=== PATIENT | female | born 1960 | race American Indian/Alaskan Native ===

== ENCOUNTER 2018-12-18 06:39 | Day surgery (SDC) | payer OTHER ==
[2018-12-18] MEDS ORDERED: SODIUM CHLORIDE 0.9% 1000 ML 1,000 ML IV SCH (07:00)
--- NOTE | 2018-12-18 08:41 | Anesthesia Day of Surgery ---
Anesthesia Day of Surgery - Day of Surgery Patient Examined: Yes Patient H&P Reviewed: Yes Patient is NPO: Yes
--- NOTE | 2018-12-18 08:42 | Anesthesia Consultation ---
Anesthesia Consult and Med Hx Date of service: 12/18/18 - Airway Anesthetic Teeth Evaluation: Good ROM Head & Neck: Adequate Mental/Hyoid Distance: Adequate Mallampati Class: Class II Intubation Access Assessment: Good - Pre-Operative Health Status ASA Pre-Surgery Classification: ASA3 Proposed Anesthetic Plan: MAC - Pulmonary Hx Smoking: Yes (CIGARETTES 1/2 PPD X 30 YRS, QUIT 3-15) Hx Asthma: No COPD: No Hx Pneumonia: Yes Hx Sleep Apnea: Yes - Cardiovascular System Hx Hypertension: Yes (FOR 5 YRS) - Central Nervous System Hx Psychiatric Problems: No - Gastrointestinal Hx Gastroesophageal Reflux Disease: Yes - Endocrine Hx Renal Disease: Yes (CKD) Hx End Stage Renal Disease: No Hx Liver Disease: Yes (Increased LFTs) Hx Non-Insulin Dependent Diabetes: Yes (FBS 172) - Other Systems Hx Cancer: No Hx Obesity: Yes
[2018-12-18] MEDS ORDERED: fentaNYL 100 MCG/2 ML INJ ONE (08:46)
[2018-12-18] MEDS ORDERED: PROPOFOL 200 MG/20 ML VIAL IV ONE ×2 (08:46)
--- NOTE | 2018-12-18 09:24 | Short Stay Summary ---
Short Stay Documentation Date of service: 12/18/18 Narrative H&P: The patient presents for diagnostic EGD for upper abdominal pain and for surveillance colonoscopy for hx of polyps. Last colonoscopy 5 years ago. - History Past Medical History: diabetes, hypertension, other (obesity, CKD) Past Surgical History: , Other (breast surgery) Social history: smoking, no alcohol abuse, no prescription drug abuse - Allergies and Medications Current Medications: Allergies No Known Allergies Allergy (Verified 04/13/14 23:31) Home Medications Medication Instructions Recorded Confirmed Last Taken Type metFORMIN [Glucophage] 500 mg PO BID 04/13/14 12/18/18 12/17/18 20:00 History Albuterol Sulfate [Proventil Hfa] 2 puff INHALATION PRN 12/18/18 12/18/18 12/17/18 09:00 History Triamter/Hctz 37.5-25 mg 1 tab PO DAILY 12/18/18 12/18/18 12/17/18 08:00 History amLODIPine [Norvasc] 5 mg PO DAILY 12/18/18 12/18/18 12/17/18 08:00 History Active Medications Sodium Chloride (Nacl 0.9% 1000 Ml) 1,000 mls @ 50 mls/hr IV DIRECT EVA Last Admin: 12/18/18 08:42 Dose: 50 mls/hr Documented by: - Physical exam General appearance: no acute distress, well-nourished, obese Integumentary: no rash, no growths, no abnormal pigmentation HEENT: Atraumatic, PERRLA, EOMI, Mucous membr. moist/pink Lungs: Clear to auscultation, Normal air movement Breasts: deferred Heart: Regular rate, Normal S1, Normal S2, No murmurs Gastrointestinal: normoactive bowel sounds, no tenderness, no distended, no masses, no guarding, no organomegaly, obese Female Genitourinary: deferred Rectal Exam: normal exam-external/orifice, normal rectal tone, no mass Extremities: no ischemia, pulses intact, pulses symmetrical, No edema, normal temperature, normal color, Full ROM Neurological: Normal gait, Normal speech, Strength at 5/5 X4 ext, Normal tone, Cranial nerves 3-12 NL - Brief post op/procedure progress note Date of procedure: 12/18/18 Findings: see dictations Estimated blood loss: none Pathology: list (antral biopsies for h.pylori) Specimen disposition: to lab Condition: stable - Disposition Condition at discharge: Good Disposition: DC-01 TO HOME OR SELFCARE - Discharge Diagnoses (1) History of colonic polyps Status: Acute (2) Epigastric abdominal pain Status: Acute Short Stay Discharge Plan Activity: other (no driving for 24 hours) Weight Bearing Status: Weight Bear as Tolerated Diet: diabetic Follow up with: MARA TALAVERA MD [Primary Care Provider] - 7 Days
--- NOTE | 2018-12-18 09:27 | Operative Report ---
Operative Report Operative Report: Date of procedure: 12/18/2018 Procedure: Esophagogastroduodenoscopy with biopsies of the antrum for H. pylori testing. Preprocedure diagnosis: Right upper quadrant and epigastric pain. Post procedure diagnosis: Mild erosive gastritis, medium size hiatus hernia. Endoscopist: Dr. Newsome Anesthesia: Monitored anesthesia care per anesthesia department Medications: Propofol and fentanyl per anesthesia. Estimated blood loss: 0 After careful discussion of the nature and purpose of the procedure as well as details the technique risks benefits and alternatives consent was obtained. The patient was placed in the left lateral decubitus position and medicated per anesthesia. The tip of the Olympus video scope was passed per orum under direct vision into the esophagus and advanced into the stomach and descending duodenum. The descending duodenum the duodenal bulb and pylorus were symmetrical and normal. The scope was withdrawn into the stomach and the stomach then gently insufflated with air. The antrum revealed scattered punctate erosions. Biopsies were taken for H. pylori testing. The stomach was further insufflated and the scope was then retroflexed and partially withdrawn. The cardia, fundus, and body of the stomach were within normal limits and easily distensible.The scope was then withdrawn in the forward position. A medium size hiatus hernia was present. The esophagogastric junction was at 36 cm. The esophageal body was normal throughout. The procedure was was well tolerated and the patient was observed in recovery. Impressions: Medium size hiatus hernia. Mild erosive gastritis. Plan: Await biopsy results for H. pylori. The patient will call the office in a week and discuss the findings and make an appointment for follow-up office visit in the next month for further care. Electronically signed: Neeraj Newsome MD
--- NOTE | 2018-12-18 09:29 | Operative Report ---
Operative Report Operative Report: Date of procedure: 12/18/2018 Preprocedure diagnosis: History of colon polyps Post procedure diagnosis: Diverticulosis of the right and left colon Procedure: Colonoscopy to the cecum Endoscopist: Dr. Newsome Anesthesia: Monitored anesthesia care per anesthesia department Estimated blood loss: 0 Medications: Monitored anesthesia care. See separate report by anesthesia for details. After careful discussion of the nature and purpose of the procedure as well as details of the technique risks benefits and alternatives the patient gave consent. Please see recent history and physical from the office. The patient was placed in the left lateral decubitus position and medicated per anesthesia. A rectal exam was performed sphincter tone was normal there were no masses palpable. The Olympus colonoscope was passed transanally and advanced under continuous direct vision without difficulty to the cecum. The colon was well prepared. The cecum was normal. The ascending colon revealed moderate diverticulosis but otherwise was normal. The transverse colon was normal. There were diverticula throughout the descending colon and sigmoid colon. The rectum was normal on forward and retroflexed views. The procedure was well-tolerated overall and the patient was observed in recovery. Conclusions: Moderate diverticulosis of the right and left colon. No recurrent polyps. Plan: Repeat colonoscopy in 5 years. Signed electronically: Neeraj Newsome M.D.
[2018-12-18 09:54] VITALS: BP 131/81
--- NOTE | 2018-12-18 10:04 | Post Anesthesia Evaluation ---
- Post Anesthesia Evaluation Patient Participated: Yes Airway Patent: Yes Stable Respiratory Function: Yes Nausea/Vomiting: No Temp > 96.8F: Yes Pain Manageable: Yes Adequeate Hydration: Yes Anesthesia Complications: No Block Receding Appropriately: Not Applicable Patient on Ventilator: No
[2018-12-18] MEDS ORDERED: LIDOCAINE MPF (2%) 20 MG/1 ML VIAL 5 ML ONE (11:00)
== END 2018-12-18 06:40 | disposition home or self-care (01) ==
LOC: GIO 06:39
PROVIDERS: ATTEND Internal Medicine Gastroenterology
DX: Z12.11 Encounter for screening for malignant neoplasm of colon (principal); R10.13 Epigastric pain; R10.11 Right upper quadrant pain; K29.50 Unspecified chronic gastritis without bleeding; K44.9 Diaphragmatic hernia without obstruction or gangrene; K57.30 Diverticulosis of large intestine without perforation or abscess without bleeding; I12.9 Hypertensive chronic kidney disease with stage 1 through stage 4 chronic kidney disease, or unspecified chronic kidney disease; E11.22 Type 2 diabetes mellitus with diabetic chronic kidney disease; N18.9 Chronic kidney disease, unspecified; F17.210 Nicotine dependence, cigarettes, uncomplicated; G47.30 Sleep apnea, unspecified; E66.9 Obesity, unspecified; M19.90 Unspecified osteoarthritis, unspecified site; Z86.010 Personal history of colon polyps; Z79.899 Other long term (current) drug therapy; Z79.84 Long term (current) use of oral hypoglycemic drugs; Z68.41 Body mass index [BMI] 40.0-44.9, adult; Z98.890 Other specified postprocedural states; Z98.891 History of uterine scar from previous surgery
CPT/HCPCS: 43239; 45378; 82962; 88305; 88342; J2704; J3010; J7030

== ENCOUNTER 2020-11-12 18:58 | Inpatient (IN) | payer OTHER ==
--- NOTE | 2020-11-12 21:11 | Event Note ---
ED Screening Note Date of service: 11/12/20 Time: 21:09 ED Screening Note: 60-year-old female with a past medical history of diabetes, hypertension and gout presents to the ER today with complaints of upper back pain as well as diffuse anterior chest pain, shortness of breath, nausea vomiting and left-sided abdominal pain. Patient states that symptoms started a couple days ago. She denies any URI symptoms or cough. She denies any wheezing. She denies any lower extremity swelling or calf pain. She denies any history of MD, or CAD. She denies any history of PE or DVT. She also denies any risk factors for possible DVT or PE. This initial assessment/diagnostic orders/clinical plan/treatment(s) is/are subject to change based on patients health status, clinical progression and re- assessment by fellow clinical providers in the ED. Further treatment and workup at subsequent clinical providers discretion. Patient/guardian urged not to elope from the ED as their condition may be serious if not clinically assessed and managed. Initial orders include: Cardiac work-up
--- NOTE | 2020-11-12 21:35 | XRay Report ---
CHEST 2 VIEWS INDICATION / CLINICAL INFORMATION: Chest Pain/upper back pain. COMPARISON: 04/16/2015 FINDINGS: SUPPORT DEVICES: None. HEART / MEDIASTINUM: No significant abnormality. LUNGS / PLEURA: No significant pulmonary or pleural abnormality. No pneumothorax. ADDITIONAL FINDINGS: No significant additional findings. IMPRESSION: 1. No acute findings. Signer Name: Jass Crooks DO Signed: 11/12/2020 9:31 PM Workstation Name: [id number]
[2020-11-12 21:43] LABS: Basophils # (Auto) 0.1 K/mm3 (0.0-0.1); Basophils % (Auto) 1.2 % (0.0-1.8); Eosinophils # (Auto) 0.4 K/mm3 (0.0-0.4); Eosinophils % (Auto) 3.3 % (0.0-4.3); Hematocrit 38.7 % (30.3-42.9); Hemoglobin 13.6 gm/dl (10.1-14.3); Lymphocytes % (Auto) 16.8 % (13.4-35.0); Mean Corpuscular HGB Conc 35 % (30-34); Mean Corpuscular Volume 85 fl (79-97); Monocytes # (Auto) 0.9 K/mm3 (0.0-0.8); Monocytes % (Auto) 7.5 % (0.0-7.3); Platelet Count 335 K/mm3 (140-440); Red Blood Count 4.54 M/mm3 (3.65-5.03)
[2020-11-12 22:00] LABS: Albumin 4.4 g/dL (3.9-5); Calcium 10.3 mg/dL (8.4-10.2)
[2020-11-12 22:38] LABS: Chol/HDL Ratio 3.58 %
[2020-11-12] MEDS ORDERED: HEPARIN 10,000 UNITS/10 ML VIAL IV PRN (23:21)
[2020-11-12] MEDS ORDERED: HEPARIN/ 0.45% NACL DRIP 25,000 UNIT/500 ML BAG IV SCH (23:45)
[2020-11-13 00:09] LABS: Hematocrit 36.4 % (30.3-42.9); Hemoglobin 13.2 gm/dl (10.1-14.3)
[2020-11-13] MEDS ORDERED: NITROGLYCERIN 2% OINT 1 GM TP ONE (00:11)
[2020-11-13] MEDS ORDERED: ASPIRIN 325 MG TAB PO ONE (00:11)
[2020-11-13 00:14] LABS: INR 0.88 (0.87-1.13)
--- NOTE | 2020-11-13 00:20 | Emergency Department Report ---
ED Chest Pain HPI - General Chief Complaint: Back Pain/Injury Stated Complaint: BACK PAIN /NAUSEA Time Seen by Provider: 11/12/20 22:38 Source: patient Mode of arrival: Ambulatory Limitations: No Limitations - History of Present Illness Initial Comments: Patient is a 60-year-old F [place] female with past medical history of hypertension diabetes and gout who is presenting with chest discomfort and back pain. Patient states 3 days ago she started having intermittent chest discomfort. This is associated with shortness of breath especially with exer tion. She had several episodes where she has become nauseous and vomited as well. Denies cough cold congestion fevers chills diarrhea. Patient states she has felt some mild dizziness and has been diaphoretic. Occasionally the pain radiates into her bilateral shoulders and arms. Severity scale (0 -10): 0 - Related Data Home Medications Medication Instructions Recorded Confirmed Last Taken metFORMIN [Glucophage] 500 mg PO BID 04/13/14 12/18/18 12/17/18 20:00 Albuterol Sulfate [Proventil Hfa] 2 puff INHALATION PRN 12/18/18 12/18/18 12/17/18 09:00 Triamter/Hctz 37.5-25 mg 1 tab PO DAILY 12/18/18 12/18/18 12/17/18 08:00 amLODIPine 5 mg PO DAILY 12/18/18 12/18/18 12/17/18 08:00 Allergies Allergy/AdvReac Type Severity Reaction Status Date / Time lisinopril Allergy Anaphylaxis Verified 11/12/20 21:05 Heart Score - HEART Score History: Moderately suspicious EKG: Non-specific Age: 45-65 Risk factors: 1-2 risk factors Troponin: > 3x normal limit HEART Score: 6 - EKG Read Time Time EKG Completed: 21:01 EKG Read Time: 21:04 ED Review of Systems ROS: Stated complaint: BACK PAIN /NAUSEA Other details as noted in HPI Comment: All other systems reviewed and negative ED Past Medical Hx - Past Medical History Hx Hypertension: Yes (FOR 5 YRS) Hx Congestive Heart Failure: No Hx Diabetes: Yes (FOR 5 YRS) Hx Liver Disease: Yes (Increased LFTs) Hx Renal Disease: Yes (CKD) Hx Arthritis: Yes Hx Asthma: No Hx COPD: No Additional medical history: hyperlipidemia, UTI - Surgical History Hx Breast Surgery: Yes ([facility]. BREAST BX) Additional Surgical History: x1 - Social History Smoking Status: Never Smoker - Medications Home Medications: Home Medications Medication Instructions Recorded Confirmed Last Taken Type metFORMIN [Glucophage] 500 mg PO BID 04/13/14 12/18/18 12/17/18 20:00 History Albuterol Sulfate [Proventil Hfa] 2 puff INHALATION PRN 12/18/18 12/18/18 12/17/18 09:00 History Triamter/Hctz 37.5-25 mg 1 tab PO DAILY 12/18/18 12/18/18 12/17/18 08:00 History amLODIPine 5 mg PO DAILY 12/18/18 12/18/18 12/17/18 08:00 History ED Physical Exam - General Limitations: No Limitations General appearance: alert, in no apparent distress - Head Head exam: Present: atraumatic, normocephalic - Eye Eye exam: Present: normal appearance, PERRL, EOMI - ENT ENT exam: Present: mucous membranes moist - Neck Neck exam: Present: normal inspection - Respiratory Respiratory exam: Present: normal lung sounds bilaterally. Absent: respiratory distress, wheezes, rales, rhonchi - Cardiovascular Cardiovascular Exam: Present: regular rate, normal rhythm, normal heart sounds. Absent: systolic murmur, diastolic murmur, rubs, gallop - GI/Abdominal GI/Abdominal exam: Present: soft, normal bowel sounds. Absent: distended, tenderness, guarding, rebound - Extremities Exam Extremities exam: Present: normal inspection - Back Exam Back exam: Present: normal inspection - Neurological Exam Neurological exam: Present: alert, oriented X3 - Psychiatric Psychiatric exam: Present: normal affect, normal mood - Skin Skin exam: Present: warm, dry, intact, normal color. Absent: rash ED Course Vital Signs 11/12/20 11/13/20 20:45 00:08 Temperature 98.8 F 98.6 F Pulse Rate 83 73 Respiratory 18 20 Rate Blood Pressure 152/85 Blood Pressure 145/78 [Right] O2 Sat by Pulse 97 98 Oximetry GIOVANNI score - Giovanni Score Age > 65: (0) No Aspirin use within the Past 7 Days: (0) No 3 or more CAD Risk Factors: (1) Yes 2 or more Angina events in past 24 hrs: (1) Yes Known CAD with more than 50% Stenosis: (0) No Elevated Cardiac Markers: (1) Yes ST Deviation Greater than 0.5mm: (0) No GIOVANNI Score: 3 ED Medical Decision Making - Lab Data Result diagrams: 11/12/20 23:40 11/12/20 21:19 Lab Results 11/12/20 11/12/20 11/12/20 Range/Units 21:19 21:19 23:40 WBC 12.0 H (4.5-11.0) K/mm3 RBC 4.54 (3.65-5.03) M/mm3 Hgb 13.6 13.2 (10.1-14.3) gm/dl Hct 38.7 36.4 (30.3-42.9) % MCV 85 (79-97) fl MCH 30 (28-32) pg MCHC 35 H (30-34) % RDW 14.0 (13.2-15.2) % Plt Count 335 312 (140-440) K/mm3 Lymph % (Auto) 16.8 (13.4-35.0) % [place] % (Auto) 7.5 H (0.0-7.3) % Eos % (Auto) 3.3 (0.0-4.3) % Baso % (Auto) 1.2 (0.0-1.8) % Lymph # (Auto) 2.0 (1.2-5.4) K/mm3 [place] # (Auto) 0.9 H (0.0-0.8) K/mm3 Eos # (Auto) 0.4 (0.0-0.4) K/mm3 Baso # (Auto) 0.1 (0.0-0.1) K/mm3 Seg Neutrophils % 71.2 H (40.0-70.0) % Seg Neutrophils # 8.6 H (1.8-7.7) K/mm3 PT (12.2-14.9) Sec. INR (0.87-1.13) APTT (24.2-36.6) Sec. Sodium 137 (137-145) mmol/L Potassium 4.3 (3.6-5.0) mmol/L Chloride 98.0 (98-107) mmol/L Carbon Dioxide 22 (22-30) mmol/L Anion Gap 21 mmol/L BUN 22 H (7-17) mg/dL Creatinine 1.3 H (0.6-1.2) mg/dL Estimated GFR 51 ml/min BUN/Creatinine Ratio 17 % Glucose 116 H (65-100) mg/dL Calcium 10.3 H (8.4-10.2) mg/dL Total Bilirubin 0.70 (0.1-1.2) mg/dL AST 33 (5-40) units/L ALT 31 (7-56) units/L Alkaline Phosphatase 700 H (35-129) units/L Troponin T 0.259 H* (0.00-0.029) ng/mL Total Protein 8.2 (6.3-8.2) g/dL Albumin 4.4 (3.9-5) g/dL Albumin/Globulin Ratio 1.2 % Triglycerides 146 (2-149) mg/dL Cholesterol 190 (50-199) mg/dL LDL Cholesterol Direct 104 (50-130) mg/dL HDL Cholesterol 53 (40-59) mg/dL Cholesterol/HDL Ratio 3.58 % Lipase 21 (13-60) units/L 11/12/20 Range/Units 23:40 WBC (4.5-11.0) K/mm3 RBC (3.65-5.03) M/mm3 Hgb (10.1-14.3) gm/dl Hct (30.3-42.9) % MCV (79-97) fl MCH (28-32) pg MCHC (30-34) % RDW (13.2-15.2) % Plt Count (140-440) K/mm3 Lymph % (Auto) (13.4-35.0) % [place] % (Auto) (0.0-7.3) % Eos % (Auto) (0.0-4.3) % Baso % (Auto) (0.0-1.8) % Lymph # (Auto) (1.2-5.4) K/mm3 [place] # (Auto) (0.0-0.8) K/mm3 Eos # (Auto) (0.0-0.4) K/mm3 Baso # (Auto) (0.0-0.1) K/mm3 Seg Neutrophils % (40.0-70.0) % Seg Neutrophils # (1.8-7.7) K/mm3 PT 12.4 (12.2-14.9) Sec. INR 0.88 (0.87-1.13) APTT 31.0 (24.2-36.6) Sec. Sodium (137-145) mmol/L Potassium (3.6-5.0) mmol/L Chloride (98-107) mmol/L Carbon Dioxide (22-30) mmol/L Anion Gap mmol/L BUN (7-17) mg/dL Creatinine (0.6-1.2) mg/dL Estimated GFR ml/min BUN/Creatinine Ratio % Glucose (65-100) mg/dL Calcium (8.4-10.2) mg/dL Total Bilirubin (0.1-1.2) mg/dL AST (5-40) units/L ALT (7-56) units/L Alkaline Phosphatase (35-129) units/L Troponin T (0.00-0.029) ng/mL Total Protein (6.3-8.2) g/dL Albumin (3.9-5) g/dL Albumin/Globulin Ratio % Triglycerides (2-149) mg/dL Cholesterol (50-199) mg/dL LDL Cholesterol Direct (50-130) mg/dL HDL Cholesterol (40-59) mg/dL Cholesterol/HDL Ratio % Lipase (13-60) units/L - EKG Data -: EKG Interpreted by Id - EKG Data 11/13/20 00:20 EKG shows normal sinus rhythm rate of 76. [place] is normal intervals are normal. Patient with Q waves in the septal leads. T wave inversions in lead III. No ST segment elevations present. Time of interpretation 2103 - Radiology Data Radiology results: report reviewed (Chest x-ray within normal limits. Mediastinum is not enlarged) - Medical Decision Making Patient is a 60-year-old F [place] female who is presenting with chest discomfort. States this is associated with shortness of breath with exertion is back pain and nausea. Troponin is significantly elevated. EKG does not show ST elevation. Repeat a EKG was done at 2300 which showed no interval change. Patient will be admitted for NSTEMI. Patient started on heparin given aspirin and the patient will be admitted for further management. Critical Care Time: Yes (30) Critical care attestation.: If time is entered above; I have spent that time in minutes in the direct care of this critically ill patient, excluding procedure time. ED Disposition Clinical Impression: NSTEMI (non-ST elevated myocardial infarction), Hypertension Disposition: ADMITTED INPATIENT Is pt being admited?: Yes Does the pt Need Aspirin: No Condition: Stable Instructions: Hypertension (ED) Time of Disposition: 00:23
[2020-11-13] MEDS ORDERED: HEPARIN 10,000 UNITS/10 ML VIAL IV ONE ×2 (00:51→10:54)
[2020-11-13] MEDS ORDERED: HYDROcodone/ACETAMINOPHEN 5-325 MG TAB PO ONE (00:53)
[2020-11-13] MEDS ORDERED: MORPHINE 2 MG/1 ML INJ IV PRN (02:58)
[2020-11-13] MEDS ORDERED: HEPARIN 10,000 UNITS/10 ML VIAL IV PRN (02:58)
[2020-11-13] MEDS ORDERED: HYDROmorphone 1 MG/1 ML INJ IV PRN (02:58)
[2020-11-13] MEDS ORDERED: ALBUTEROL 2.5 MG/3 ML NEBU IH PRN (03:11)
--- NOTE | 2020-11-13 03:11 | History and Physical Report ---
History of Present Illness Date of examination: 11/13/20 Date of admission: 11/13/20 02:00 Chief complaint: Chest pain History of present illness: 60-year-old female with a past medical history of diabetes, hypertension and gout presents to the ER today with complaints of upper back pain as well as diffuse anterior chest pain, shortness of breath, nausea vomiting and left-sided abdominal pain. Patient states 3 days ago she started having intermittent chest discomfort. This is associated with shortness of breath especially with exertion. She had several episodes where she has become nauseous and vomited as well. Denies cough cold congestion fevers chills diarrhea. Patient states she has felt some mild dizziness and has been diaphoretic. Occasionally the pain radiates into her bilateral shoulders and arms. In the ER patient troponin is 0.259. Chest x-ray shows no acute finding. We will going to admit the patient with the diagnosis of non-ST elevation NV. Will consult cardiology for evaluation Med rec is done Past History Past Medical History: diabetes, hypertension, other (Gout) Medications and Allergies Allergies Allergy/AdvReac Type Severity Reaction Status Date / Time lisinopril Allergy Anaphylaxis Verified 11/12/20 21:05 Home Medications Medication Instructions Recorded Confirmed Last Taken Type metFORMIN [Glucophage] 500 mg PO BID 04/13/14 12/18/18 12/17/18 20:00 History Albuterol Sulfate [Proventil Hfa] 2 puff INHALATION PRN 12/18/18 12/18/18 12/17/18 09:00 History Triamter/Hctz 37.5-25 mg 1 tab PO DAILY 12/18/18 12/18/18 12/17/18 08:00 History amLODIPine 5 mg PO DAILY 12/18/18 12/18/18 12/17/18 08:00 History Active Meds: Active Medications Heparin Sodium/Sodium Chloride (Heparin/ 0.45% Nacl-25,000 Unit/500 Ml) 25,000 unit in 500 mls @ 20 mls/hr IV TITRATE EVA; Protocol Last Admin: 11/13/20 01:28 Dose: 1,000 units/hr, 20 mls/hr Documented by: Review of Systems All systems: negative Cardiovascular: chest pain, shortness of breath, dyspnea on exertion Respiratory: shortness of breath, dyspnea on exertion Gastrointestinal: abdominal pain, nausea, vomiting Exam - Constitutional Vitals: Temp Pulse Resp BP Pulse Ox 98.6 F 70 20 155/88 99 11/13/20 00:08 11/13/20 01:31 11/13/20 02:18 11/13/20 01:31 11/13/20 02:18 General appearance: Present: no acute distress, well-nourished - EENT Eyes: Present: PERRL ENT: hearing intact, clear oral mucosa - Neck Neck: Present: supple, normal ROM - Respiratory Respiratory effort: normal Respiratory: bilateral: CTA - Cardiovascular Heart Sounds: Present: S1 & S2. Absent: rub, click - Extremities Extremities: pulses symmetrical, No edema Peripheral Pulses: within normal limits - Abdominal General gastrointestinal: Present: soft, non-tender, non-distended, normal bowel sounds Female genitourinary: Present: normal - Integumentary Integumentary: Present: clear, warm, dry - Musculoskeletal Musculoskeletal: gait normal, strength equal bilaterally - Psychiatric Psychiatric: appropriate mood/affect, intact judgment & insight - Neurologic Neurologic: CNII-XII intact, moves all extremities HEART Score - HEART Score EKG: Non-specific Age: 45-65 Risk factors: 1-2 risk factors Troponin: Troponin T 0.265 ng/mL (0.00-0.029) H* 11/13/20 00:11 Troponin: > 3x normal limit Results - Labs CBC & Chem 7: 11/12/20 23:40 11/12/20 21:19 Labs: Laboratory Last Values WBC 12.0 K/mm3 (4.5-11.0) H 11/12/20 21:19 RBC 4.54 M/mm3 (3.65-5.03) 11/12/20 21:19 Hgb 13.2 gm/dl (10.1-14.3) 11/12/20 23:40 Hct 36.4 % (30.3-42.9) 11/12/20 23:40 MCV 85 fl (79-97) 11/12/20 21:19 MCH 30 pg (28-32) 11/12/20 21:19 MCHC 35 % (30-34) H 11/12/20 21:19 RDW 14.0 % (13.2-15.2) 11/12/20 21:19 Plt Count 312 K/mm3 (140-440) 11/12/20 23:40 Lymph % (Auto) 16.8 % (13.4-35.0) 11/12/20 21:19 [place] % (Auto) 7.5 % (0.0-7.3) H 11/12/20 21:19 Eos % (Auto) 3.3 % (0.0-4.3) 11/12/20 21:19 Baso % (Auto) 1.2 % (0.0-1.8) 11/12/20 21:19 Lymph # (Auto) 2.0 K/mm3 (1.2-5.4) 11/12/20 21:19 [place] # (Auto) 0.9 K/mm3 (0.0-0.8) H 11/12/20 21:19 Eos # (Auto) 0.4 K/mm3 (0.0-0.4) 11/12/20 21:19 Baso # (Auto) 0.1 K/mm3 (0.0-0.1) 11/12/20 21:19 Seg Neutrophils % 71.2 % (40.0-70.0) H 11/12/20 21:19 Seg Neutrophils # 8.6 K/mm3 (1.8-7.7) H 11/12/20 21:19 PT 12.4 Sec. (12.2-14.9) 11/12/20 23:40 INR 0.88 (0.87-1.13) 11/12/20 23:40 APTT 31.0 Sec. (24.2-36.6) 11/12/20 23:40 Sodium 137 mmol/L (137-145) 11/12/20 21:19 Potassium 4.3 mmol/L (3.6-5.0) 11/12/20 21:19 Chloride 98.0 mmol/L (98-107) 11/12/20 21:19 Carbon Dioxide 22 mmol/L (22-30) 11/12/20 21:19 Anion Gap 21 mmol/L 11/12/20 21:19 BUN 22 mg/dL (7-17) H 11/12/20 21:19 Creatinine 1.3 mg/dL (0.6-1.2) H 11/12/20 21:19 Estimated GFR 51 ml/min 10/07/21 21:19 BUN/Creatinine Ratio 17 % 11/12/20 21:19 Glucose 116 mg/dL (65-100) H 11/12/20 21:19 Calcium 10.3 mg/dL (8.4-10.2) H 11/12/20 21:19 Total Bilirubin 0.70 mg/dL (0.1-1.2) 11/12/20 21:19 AST 33 units/L (5-40) 11/12/20 21:19 ALT 31 units/L (7-56) 11/12/20 21:19 Alkaline Phosphatase 700 units/L (35-129) H 11/12/20 21:19 Troponin T 0.265 ng/mL (0.00-0.029) H* 11/13/20 00:11 Total Protein 8.2 g/dL (6.3-8.2) 11/12/20 21:19 Albumin 4.4 g/dL (3.9-5) 11/12/20 21:19 Albumin/Globulin Ratio 1.2 % 11/12/20 21:19 Triglycerides 146 mg/dL (2-149) 11/12/20 21:19 Cholesterol 190 mg/dL (50-199) 11/12/20 21:19 LDL Cholesterol Direct 104 mg/dL (50-130) 11/12/20 21:19 HDL Cholesterol 53 mg/dL (40-59) 11/12/20 21:19 Cholesterol/HDL Ratio 3.58 % 11/12/20 21:19 Lipase 21 units/L (13-60) 11/12/20 21:19 - Imaging and Cardiology Chest x-ray: report reviewed Assessment and Plan VTE prophylaxis?: Chemical Plan of care discussed with patient/family: Yes - Patient Problems (1) NSTEMI (non-ST elevated myocardial infarction) Current Visit: Yes Status: Acute Plan to address problem: Admitting the patient to the medical telemetry. Aspirin 325 mg p.o. daily. Nitroglycerin as needed. Lipitor 40 mg p.o. daily. Morphine 2 mg IV every 4 hours as needed. We will do the serial cardiac enzyme. Echocardiogram. Cardiology consult. Heparin drip as per protocol (2) Hypertension Current Visit: Yes Status: Chronic Plan to address problem: Amlodipine 5 mg p.o. daily. We will continue the home medication. We will monitor the blood pressure closely (3) Nausea and vomiting Current Visit: No Status: Acute Plan to address problem: Pepcid 20 mg IV every 12 hours . Zofran 4 mg IV every 6 hours as needed. We will monitor the patient closely (4) Shortness of breath Current Visit: No Status: Acute Plan to address problem: Oxygen by nasal cannula 3 L/min. DuoNeb by nebulizer every 4 hours. Albuterol via nebulizer every 4 hours as needed (5) Diabetes Current Visit: No Status: Chronic Plan to address problem: We will put the patient on insulin sliding scale Humalog coverage Accu-Chek before meals and at bedtime with moderate dose coverage. Diabetic education (6) DVT prophylaxis Current Visit: Yes Status: Acute Plan to address problem: Heparin drip as per protocol for DVT prophylaxis. Pepcid 20 mg p.o. twice daily for GI prophylaxis. Patient is a full code
[2020-11-13] MEDS ORDERED: DEXTROSE 50% IN WATER (25GM) 50 ML SYRINGE IV PRN (03:13)
[2020-11-13] MEDS ORDERED: ALBUTEROL 8.5 GM MDI INHALATION IH SCH (03:15)
--- NOTE | 2020-11-13 08:35 | Electrocardiograph Report ---
[facility] Test Date: 2020-11-12 Test Time: 21:01:31 Pat Name: KARI STEELE Department: Room: [place] [address] Gender: F Sign Erector And Repairer: ELYSIA : 1960 Requested By: RONALD ORTIZ Order Number: [id number] Reading MD: Marcelo Thornton Measurements Intervals [place] Rate: 76 P: 61 [place]: 165 QRS: 56 QRSD: 77 T: -15 QT: 395 QTc: 445 Interpretive Statements Sinus rhythm Probable left atrial enlargement Anterior infarct, old No previous ECG available for comparison Electronically Signed On 11-13-2020 8:35:05 EDT by Marcelo Thornton
--- NOTE | 2020-11-13 08:35 | Electrocardiograph Report ---
[facility] Test Date: 2020-11-12 Test Time: 23:00:49 Pat Name: KARI STEELE Department: Room: [place] [address] Gender: F Manufacturer Representative: ELYSIA : 1960 Requested By: ROSANNA MCINTOSH Order Number: [id number] Reading MD: Marcelo Thornton Measurements Intervals [place] Rate: 71 P: 57 [place]: 158 QRS: 55 QRSD: 84 T: 6 QT: 421 QTc: 457 Interpretive Statements Sinus rhythm Anterior infarct, old No previous ECG available for comparison Electronically Signed On 11-13-2020 8:35:10 EDT by Marcelo Thornton
[2020-11-13] MEDS ORDERED: NITROGLYCERIN 600 MCG/3 ML SYRINGE ONE (10:00)
[2020-11-13] MEDS ORDERED: TRIAMTER/HCTZ 37.5-25 MG TAB PO SCH (10:00)
[2020-11-13] MEDS ORDERED: HEPARIN/NS 5000 UNITS/500 ML BAG (CATH LAB ONLY) IR ONE (10:00)
[2020-11-13] MEDS ORDERED: TRIAMTER PO SCH (10:00)
[2020-11-13] MEDS ORDERED: HEPARIN 10,000 UNITS/10 ML VIAL ONE (10:00)
[2020-11-13] MEDS ORDERED: HCTZ PO SCH (10:00)
[2020-11-13] MEDS ORDERED: LIDOCAINE (2%) 20 MG/1 ML VIAL 20 ML MDV INFILTRATI ONE ×2 (10:00→10:34)
[2020-11-13] MEDS ORDERED: TICAGRELOR 90 MG TAB ONE (10:00)
[2020-11-13] MEDS ORDERED: SODIUM CHLORIDE 0.9% 500 ML IVPB ONE (10:00)
[2020-11-13] MEDS ORDERED: MIDAZOLAM 2 MG/2 ML INJ ONE (10:00)
[2020-11-13] MEDS ORDERED: ASPIRIN EC 325 MG TAB PO SCH (10:00)
[2020-11-13] MEDS ORDERED: fentaNYL 100 MCG/2 ML INJ ONE (10:00)
[2020-11-13] MEDS ORDERED: VERAPAMIL 5 MG/2 ML INJ ONE (10:00)
[2020-11-13] MEDS ORDERED: fentaNYL 100 MCG/2 ML INJ IV ONE (10:24)
[2020-11-13] MEDS ORDERED: MIDAZOLAM 2 MG/2 ML INJ IV ONE (10:24)
[2020-11-13] MEDS ORDERED: VERAPAMIL 5 MG/2 ML INJ ART-SHEATH ONE (10:35)
[2020-11-13] MEDS ORDERED: NITROGLYCERIN 600 MCG/3 ML SYRINGE ART-SHEATH ONE (10:35)
[2020-11-13] MEDS ORDERED: HEPARIN 10,000 UNITS/10 ML VIAL ART-SHEATH ONE (10:35)
[2020-11-13] MEDS ORDERED: NITROGLYCERIN 600 MCG/3 ML SYRINGE INTRA-CORO ONE (11:09)
[2020-11-13] MEDS ORDERED: ALUM-MAG HYDROXIDE-SIMETHICONE 200-200-20MG/5ML ORAL LIQD 30 ML PO ONE (11:19)
[2020-11-13] MEDS ORDERED: TICAGRELOR 90 MG TAB PO ONE (11:19)
--- NOTE | 2020-11-13 11:46 | Cardiac Catherization Report ---
DATE OF PROCEDURE: 11/13/2020 CARDIAC CATHETERIZATION REFERRING PHYSICIAN: Hospitalist service. INDICATIONS FOR PROCEDURE: The patient is a pleasant 60-year-old -Irish female with multiple risk factors including diabetes, hypertension, tobacco abuse, gout, presents with chest pain and findings consistent with non-ST elevation myocardial infarction, wants to proceed with left heart catheterization. Risks, benefits and alternatives were discussed. PROCEDURE IN DETAIL: The patient was brought to [employer] in a postabsorptive state, prepped and draped in sterile fashion. Frederic's test in right hand is normal. A 2 mL of 2% lidocaine was used to anesthetize the right wrist. A standard 6-[place] hydrophilic sheath was used to cannulate the right radial artery via a modified Seldinger technique. All exchanges performed to exchange a J-tip guidewire. JL3.5 catheter used to engage the left main. No dampening or ventricularization. Cineangiography was performed in all projections. JR4 catheter was used to cross the aortic valve under fluoroscopic guidance. Left ventriculography was performed in 30 KHAN and 30 GUYANESE projections via hand injections, catheter flushed. Manual pullback performed with continuous pressure monitoring. Next, catheter was used to engage the right coronary. No dampening or ventricularization. Cineangiography was performed in multiple projections. Next, catheter was removed from the body over a wire. DATA: Aortic pressure is 130/70, LV pressure is 130, LVEDP of 20 mmHg. Left ventriculography reveals normal systolic performance, estimated ejection fraction of 55-60%. No evidence of aortic stenosis. CORONARY ANATOMY: This is a right dominant system. Left main short, no significant disease, bifurcates in the left anterior descending and left circumflex. Left circumflex is a moderate sized vessel, courses AV groove. No significant disease. LAD is a moderate sized vessel, courses anterior intergroove, wraps around the apex. There is a 25% proximal LAD stenosis, GIOVANNI 3 flow, otherwise no obstructive disease noted in the left system. The right coronary has a 25% stenosis proximally, 100% stenosis distally with acute angiographic characteristics of acute atherothrombosis, also a 99% stenosis in the mid LAD. This is clearly the culprit vessel. GIOVANNI 0 flow to the distal right coronary. At this point, we turned our attention to PCI. Heparin given. Abnormal ACT confirmed. The patient reloaded with aspirin and the patient now loaded with Brilinta. A JR4 guide was used to engage the vessel. We used a [place] wire to cross the lesion without difficulty, predilated both lesions with a 2.5 x 12 balloon. Return of GIOVANNI 2 flow. Next, the distal lesion was stented with a 2.5 x 15 Resolute Luis Alberto stent. Excellent angiographic result. Next, we used a 2.75 x 30 Luis Alberto stent for the mid segment lesions. Excellent angiographic result, GIOVANNI 3 flow. No further lesions noted. Intravascular ultrasound was performed. Multiple passes were made, reveals well-apposed and well-expanded stents, GIOVANNI 3 flow throughout. Excellent final angiographic result. No dissection or penetrating aortic ulcer. Catheter and wire removed from the body. The patient had an uncomplicated procedure. I directly supervised the administration of moderate sedation with fentanyl and Versed from 10:20 a.m. to 11:10 a.m. No immediate complications. CONCLUSIONS: 1. Acute atherothrombotic occlusion of the mid/distal right coronary in the setting of an acute coronary syndrome/non-ST elevation myocardial infarction. A. Successful IVUS-guided percutaneous coronary intervention of distal and mid right coronary artery with 2 drug-eluting stents, (Resolute 2.5 x 15, Resolute 2.75 x 30) with excellent final angiographic and ultrasonographic results. Nonobstructive disease noted in the left system. 2. Preserved left ventricular systolic performance, estimated ejection fraction of 55-60%. The patient is now clinically stable, chest pain free. Dual antiplatelet therapy. Discussed the importance of smoking cessation. Also discussed need to repeat a CMP and alkaline phosphatase. If the alkaline phosphatase remains elevated, we will consider GI consultation. I reviewed the results of the procedure at length. All questions and concerns were addressed. Standard radial care. We will check echocardiography as well. TID: [id number] RECEIPT: [id number] SBM/VIS
[2020-11-13] MEDS ORDERED: HYDROcodone/ACETAMINOPHEN 5-325 MG TAB PO PRN (11:51)
--- NOTE | 2020-11-13 15:08 | Event Note ---
Date: 11/13/20 Patient was evaluated this morning. Cardiology was consulted upon admission. The patient underwent left heart catheterization (11/13/2020) and was found to have 100% occlusion in the mid RCA. The patient received 2 stents, and currently has normal LV function. Refer to cardiology note for additional details. The patient will be transferred to the ICU for further management.
[2020-11-13] MEDS: INSULIN LISPRO 100 UNIT/ML SUB-Q SCH ×2 (17:50→20:12)
[2020-11-13] MEDS: amLODIPine 5 MG TAB PO SCH (17:51)
[2020-11-13] MEDS: SODIUM CHLORIDE 0.9% 1000 ML 1,000 ML IV SCH (19:21)
[2020-11-13 21:31] LABS: Albumin 4.2 g/dL (3.9-5); Calcium 10.1 mg/dL (8.4-10.2)
[2020-11-13] MEDS: TICAGRELOR 90 MG TAB PO SCH (22:31)
[2020-11-13] MEDS: METOPROLOL TARTRATE 25 MG TAB PO SCH (22:31)
[2020-11-13] MEDS: ACETAMINOPHEN 325 MG TAB PO PRN (22:36)
--- NOTE | 2020-11-14 02:42 | Consultation ---
DATE OF CONSULTATION: 11/13/2020 CARDIOLOGY CONSULTATION REFERRING PHYSICIAN: Hospitalist service. REASON FOR CONSULTATION: Advice and opinion regarding chest pain. HISTORY OF PRESENT ILLNESS: The patient is a 60-year-old -Aust[place] female with history of hypertension, diabetes and tobacco abuse, who presents here with chest pain. Apparently, she has been having chest pain on and off for 3 days, worse. Most recently brought to the Emergency Room last night. She is currently chest pain free. She has occasional dyspnea on exertion, dizziness. No fevers, chills, nausea or vomiting. No hematochezia, melena, hemoptysis or hematemesis. No cold or heat intolerance. No rashes. Inpatient and outpatient medications reviewed. REVIEW OF SYSTEMS: As per HPI. PAST MEDICAL HISTORY: Diabetes, hypertension and gout. INPATIENT AND OUTPATIENT MEDICATIONS: Reviewed. SHE HAS ANAPHYLAXIS REACTION TO LISINOPRIL. She is on IV heparin as well and she has been loaded with aspirin as well. SOCIAL HISTORY: Positive for tobacco abuse. FAMILY HISTORY: No family history of premature heart disease. PHYSICAL EXAMINATION: VITAL SIGNS: Blood pressure is 120/70. Tele reveals sinus rhythm in the 60s and 70s, O2 sats 98% on room air. HEENT: Sclerae anicteric. PERRLA. NECK: Supple. No masses. No JVD. CHEST: Clear to auscultation bilaterally. Good air movement. CARDIAC: Regular S1, S2. ABDOMEN: Soft, nontender, nondistended. Normoactive bowel sounds in 4 quadrants. No mass or bruits. EXTREMITIES: No cyanosis, clubbing, edema. Good peripheral pulses. SKIN: Intact. No rashes. DIAGNOSTIC DATA: EKG reveals normal sinus rhythm, late anterior progression, no acute ST segment shift. Chest x-ray shows no acute findings per radiology. LABORATORY DATA: Troponin is 0.259, 0.265, and 0.373 sequentially, creatinine is 1.3. Of note, alkaline phosphatase was 700 yesterday. We will need to repeat a CMP. She is on IV heparin. ASSESSMENT AND PLAN: The patient is a pleasant 60-year-old -Austrian female: 1. Acute coronary syndrome/non-ST elevation myocardial infarction on IV heparin, aspirin. Given very typical chest pain history of positive up trending troponin and multiple risk factors, risks, benefits and alternatives discussed. She elected to proceed with invasive angiography and possible PCI. Continue IV heparin for now. Further plans contingent on cath results. We will also need to repeat a CMP and alkaline phosphatase. Thank you for this consultation. We will be happy to follow along with you. TID: [id number] RECEIPT: [id number] KOLBY/JAREK/KEZIA
[2020-11-14 06:05] LABS: Basophils # (Auto) 0.1 K/mm3 (0.0-0.1); Basophils % (Auto) 0.9 % (0.0-1.8); Eosinophils # (Auto) 0.3 K/mm3 (0.0-0.4); Eosinophils % (Auto) 3.2 % (0.0-4.3); Hematocrit 34.9 % (30.3-42.9); Hemoglobin 12.1 gm/dl (10.1-14.3); Lymphocytes # (Auto) 2.1 K/mm3 (1.2-5.4); Lymphocytes % (Auto) 23.4 % (13.4-35.0); Mean Corpuscular HGB Conc 35 % (30-34); Mean Corpuscular Volume 85 fl (79-97); Monocytes # (Auto) 1.1 K/mm3 (0.0-0.8); Monocytes % (Auto) 12.7 % (0.0-7.3); Platelet Count 271 K/mm3 (140-440); Red Blood Count 4.09 M/mm3 (3.65-5.03); Red Cell Distribution Width 13.9 % (13.2-15.2)
[2020-11-14] MEDS: INSULIN LISPRO 100 UNIT/ML SUB-Q SCH ×6 (06:25→21:43)
[2020-11-14 06:31] LABS: Calcium 9.4 mg/dL (8.4-10.2)
[2020-11-14] MEDS: SODIUM CHLORIDE 0.9% 1000 ML 1,000 ML IV SCH ×2 (07:31→19:32)
[2020-11-14] MEDS ORDERED: MAGNESIUM SULFATE 2 GM/50 ML BAG IV ONE (08:00)
--- NOTE | 2020-11-14 08:28 | XRay Report ---
CHEST 1 VIEW INDICATION: post pci. COMPARISON: 2 days prior FINDINGS: Support devices: None. Heart: Stable. Lungs/Pleura: No acute pulmonary or pleural findings. IMPRESSION: 1. No significant change. Signer Name: Calos Nolasco MD Signed: 11/14/2020 8:23 AM Workstation Name: [id number]
[2020-11-14 08:39] LABS: Albumin 3.7 g/dL (3.9-5); Bilirubin,Direct 0.4 mg/dL (0-0.2)
[2020-11-14] MEDS: TICAGRELOR 90 MG TAB PO SCH ×2 (09:59→21:42)
[2020-11-14] MEDS: METOPROLOL TARTRATE 25 MG TAB PO SCH (09:59)
[2020-11-14] MEDS: ASPIRIN 81 MG TAB CHEW PO SCH (09:59)
[2020-11-14] MEDS: amLODIPine 5 MG TAB PO SCH (09:59)
--- NOTE | 2020-11-14 10:26 | Progress Note ---
Assessment and Plan Her sinus pause during sleep is likely related to underlying sleep apnea. Discontinue metoprolol. Observe her rhythm on the monitor overnight. Discontinue Maxide due to LEEANN. - Patient Problems (1) NSTEMI (non-ST elevated myocardial infarction) Current Visit: Yes Status: Acute (2) Stented coronary artery Current Visit: Yes Status: Acute (3) CAD (coronary artery disease) Current Visit: Yes Status: Acute Qualifiers: Coronary Disease-Associated Artery/Lesion type: [place] artery (4) Sinus pause Current Visit: Yes Status: Acute (5) LEEANN (acute kidney injury) Current Visit: Yes Status: Acute (6) CAMERON (obstructive sleep apnea) Current Visit: Yes Status: Chronic (7) Abnormal LFTs Current Visit: Yes Status: Acute (8) Hypertension Current Visit: Yes Status: Chronic Qualifiers: Hypertension type: primary hypertension Qualified Code(s): I10 - Essential (primary) hypertension (9) Diabetes mellitus Current Visit: Yes Status: Chronic Qualifiers: Diabetes mellitus type: type 2 Subjective Date of service: 11/14/20 Principal diagnosis: Acute NSTEMI Interval history: No chest pain. She feels fine. On the morning till this morning, she is in normal sinus rhythm in the 80s. However, she had a 4.6-second pause at about 2 AM. She claims that she has sleep apnea but could not afford CPAP. Objective Vital Signs Last Vital Signs Temp 98.9 F 11/14/20 08:13 Pulse 82 11/14/20 08:13 Resp 18 11/14/20 08:13 BP 145/93 11/14/20 08:13 Pulse Ox 96 11/14/20 08:13 - Physical Examination General: No Apparent Distress HEENT: Positive: EOMI, Normocephaly, Mucus Membranes Moist Neck: Positive: neck supple, trachea midline, Carotid Upstroke (full) Cardiac: Positive: Reg Rate and Rhythm, S1/S2 Lungs: Positive: clear to auscultation Neuro: Positive: Grossly Intact Abdomen: Positive: Soft, Active Bowel Sounds. Negative: Tender Skin: Positive: Clear. Negative: Rash Incision: Cardiac Cath Site (No hematoma) Musculoskeletal: Normal Range of Motion Extremities: Present: normal. Absent: edema - Labs and Meds Cardiac Enzymes 11/13/20 11/14/20 Range/Units 20:19 08:06 AST 34 40 (5-40) units/L CBC 11/14/20 Range/Units 05:27 WBC 9.0 (4.5-11.0) K/mm3 RBC 4.09 (3.65-5.03) M/mm3 Hgb 12.1 (10.1-14.3) gm/dl Hct 34.9 (30.3-42.9) % Plt Count 271 (140-440) K/mm3 Lymph # (Auto) 2.1 (1.2-5.4) K/mm3 [place] # (Auto) 1.1 H (0.0-0.8) K/mm3 Eos # (Auto) 0.3 (0.0-0.4) K/mm3 Baso # (Auto) 0.1 (0.0-0.1) K/mm3 Comprehensive Metabolic Panel 11/13/20 11/14/20 11/14/20 Range/Units 20:19 05:27 08:06 Sodium 137 140 (137-145) mmol/L Potassium 4.0 3.7 (3.6-5.0) mmol/L Chloride 100.8 104.3 (98-107) mmol/L Carbon Dioxide 20 L 18 L (22-30) mmol/L BUN 22 H 24 H (7-17) mg/dL Creatinine 1.4 H 1.5 H (0.6-1.2) mg/dL Glucose 144 H 130 H (65-100) mg/dL Calcium 10.1 9.4 (8.4-10.2) mg/dL Direct Bilirubin 0.4 H (0-0.2) mg/dL Indirect Bilirubin 0.3 mg/dL AST 34 40 (5-40) units/L ALT 25 27 (7-56) units/L Alkaline Phosphatase 615 H 568 H (35-129) units/L Total Protein 8.6 H 7.5 (6.3-8.2) g/dL Albumin 4.2 3.7 L (3.9-5) g/dL - Telemetry EKG Rhythm: Sinus Rhythm (4.6-second pause at 2 AM)
--- NOTE | 2020-11-14 11:09 | Progress Note ---
Assessment and Plan Assessment and plan: 60-year-old female with a past medical history of diabetes, hypertension and gout presents to the ER today with complaints of upper back pain as well as diffuse anterior chest pain, shortness of breath, nausea vomiting and left-sided abdominal pain. #NSTEMI #Stented coronary artery #Coronary artery disease - Cardiology on board; sharita roque - underwent left heart catheterization (11/13/2020) and was found to have 100% occlusion in the mid RCA. The patient received 2 stents, and currently has normal LV function. - discontinued metoprolol and started isosorbide mononitrate 60 mg daily. -Continue ASA 81 mg daily, atorvastatin 40 mg daily, and Brilinta 90 mg every 12 hours -Continue to monitor #Sinus pause -Patient noted to have sinus pause of approximately 4.6 seconds at 2 AM this morning -Continue to monitor #Obstructive sleep apnea -Patient endorses CAMERON; however, the patient could not afford a CPAP. Therefore she does not use one at home. -Initiating continuous pulse oximetry -Continue to monitor #Hypertension -Blood pressure is currently stable -Continue amlodipine 5 mg daily #Diabetes mellitus (type II) -Continue patient on moderate SSI with Accu-Cheks before meals and at bedtime #Acute hypoxic respiratory failure-resolved -Continue to monitor #Nausea and vomiting-resolved -Continue IV Zofran 4 mg every 6 hours as needed #DVT prophylaxis -Initiating SCDs Disposition Plan: Pending medical management. Total Time Spent with Patient (Minutes): 30 Hospitalist Physical - Constitutional Vitals: Temp Pulse Resp BP Pulse Ox 98.9 F 82 18 145/93 96 11/14/20 08:13 11/14/20 08:13 11/14/20 08:13 11/14/20 08:13 11/14/20 08:13 General appearance: Present: no acute distress, well-nourished, obese - EENT Eyes: Present: PERRL, EOM intact ENT: hearing intact, clear oral mucosa, dentition normal - Neck Neck: Present: supple, normal ROM - Respiratory Respiratory effort: normal - Cardiovascular Rhythm: regular Heart Sounds: Present: S1 & S2 - Extremities Extremities: no ischemia, pulses intact, pulses symmetrical, No edema, normal temperature, normal color Extremity abnormal: tenderness (Mild tenderness of right radius at site of LHC entry) Peripheral Pulses: within normal limits - Abdominal General gastrointestinal: soft, non-tender, non-distended, normal bowel sounds - Integumentary Integumentary: Present: clear, warm, dry - Psychiatric Psychiatric: appropriate mood/affect, intact judgment & insight, memory intact, cooperative - Neurologic Neurologic: CNII-XII intact, moves all extremities - Allied Health Allied health notes reviewed: nursing HEART Score - HEART Score EKG: Non-specific Age: 45-65 Risk factors: 1-2 risk factors Troponin: Troponin T 0.865 ng/mL (0.00-0.029) H* D 11/14/20 05:27 Troponin: > 3x normal limit Results - Labs CBC & Chem 7: 11/14/20 05:27 11/14/20 05:27 Labs: Laboratory Last Values WBC 9.0 K/mm3 (4.5-11.0) 11/14/20 05:27 RBC 4.09 M/mm3 (3.65-5.03) 11/14/20 05:27 Hgb 12.1 gm/dl (10.1-14.3) 11/14/20 05:27 Hct 34.9 % (30.3-42.9) 11/14/20 05:27 MCV 85 fl (79-97) 11/14/20 05:27 MCH 30 pg (28-32) 11/14/20 05:27 MCHC 35 % (30-34) H 11/14/20 05:27 RDW 13.9 % (13.2-15.2) 11/14/20 05:27 Plt Count 271 K/mm3 (140-440) 11/14/20 05:27 Lymph % (Auto) 23.4 % (13.4-35.0) 11/14/20 05:27 [place] % (Auto) 12.7 % (0.0-7.3) H 11/14/20 05:27 Eos % (Auto) 3.2 % (0.0-4.3) 11/14/20 05:27 Baso % (Auto) 0.9 % (0.0-1.8) 11/14/20 05:27 Lymph # (Auto) 2.1 K/mm3 (1.2-5.4) 11/14/20 05:27 [place] # (Auto) 1.1 K/mm3 (0.0-0.8) H 11/14/20 05:27 Eos # (Auto) 0.3 K/mm3 (0.0-0.4) 11/14/20 05:27 Baso # (Auto) 0.1 K/mm3 (0.0-0.1) 11/14/20 05:27 Seg Neutrophils % 59.8 % (40.0-70.0) 11/14/20 05:27 Seg Neutrophils # 5.4 K/mm3 (1.8-7.7) 11/14/20 05:27 PT 12.4 Sec. (12.2-14.9) 11/12/20 23:40 INR 0.88 (0.87-1.13) 11/12/20 23:40 APTT 31.0 Sec. (24.2-36.6) 11/12/20 23:40 Heparin Anti-Xa Level 0.89 U.I./ml (0.3-0.7) H 11/13/20 07:46 Sodium 140 mmol/L (137-145) 11/14/20 05:27 Potassium 3.7 mmol/L (3.6-5.0) 11/14/20 05:27 Chloride 104.3 mmol/L (98-107) 11/14/20 05:27 Carbon Dioxide 18 mmol/L (22-30) L 11/14/20 05:27 Anion Gap 21 mmol/L 11/14/20 05:27 BUN 24 mg/dL (7-17) H 11/14/20 05:27 Creatinine 1.5 mg/dL (0.6-1.2) H 11/14/20 05:27 Estimated GFR 43 ml/min 11/14/20 05:27 BUN/Creatinine Ratio 16 % 11/14/20 05:27 Glucose 130 mg/dL (65-100) H 11/14/20 05:27 POC Glucose 131 mg/dL (70-105) H 11/14/20 08:11 Calcium 9.4 mg/dL (8.4-10.2) 11/14/20 05:27 Phosphorus 2.90 mg/dL (2.5-4.5) 11/14/20 05:27 Magnesium 1.60 mg/dL (1.7-2.3) L 11/14/20 05:27 Total Bilirubin 0.70 mg/dL (0.1-1.2) 11/14/20 08:06 Direct Bilirubin 0.4 mg/dL (0-0.2) H 11/14/20 08:06 Indirect Bilirubin 0.3 mg/dL 11/14/20 08:06 AST 40 units/L (5-40) 11/14/20 08:06 ALT 27 units/L (7-56) 11/14/20 08:06 Alkaline Phosphatase 568 units/L (35-129) H 11/14/20 08:06 Troponin T 0.865 ng/mL (0.00-0.029) H* D 11/14/20 05:27 Total Protein 7.5 g/dL (6.3-8.2) 11/14/20 08:06 Albumin 3.7 g/dL (3.9-5) L 11/14/20 08:06 Albumin/Globulin Ratio 1.0 % 11/14/20 08:06 Triglycerides 146 mg/dL (2-149) 11/12/20 21:19 Cholesterol 190 mg/dL (50-199) 11/12/20 21:19 LDL Cholesterol Direct 104 mg/dL (50-130) 11/12/20 21:19 HDL Cholesterol 53 mg/dL (40-59) 11/12/20 21:19 Cholesterol/HDL Ratio 3.58 % 11/12/20 21:19 Lipase 21 units/L (13-60) 11/12/20 21:19 [place]an/IV: Voiding Method Toilet Active Medications - Current Medications Current Medications: Generic Name Dose Route Start Last Admin Trade Name Freq PRN Reason Stop Dose Admin Acetaminophen 650 mg 11/13/20 02:58 11/13/20 22:36 Acetaminophen 325 Mg Tab PO 650 mg Q4H PRN Administration Pain, Mild (1-3) Hydrocodone Bitart/Acetaminophen 1 each 11/13/20 11:51 Hydrocodone/Acetaminophen 5-325 Mg Tab PO Q6H PRN Pain, Moderate (4-6) Albuterol 2.5 mg 11/13/20 03:11 Albuterol 2.5 Mg/3 Ml Nebu IH Q4HRT PRN Shortness Of Breath Amlodipine Besylate 5 mg 11/13/20 10:00 11/14/20 09:59 Amlodipine 5 Mg Tab PO 5 mg DAILY EVA Administration Aspirin 81 mg 11/14/20 10:00 11/14/20 09:59 Aspirin 81 Mg Tab Chew PO 81 mg QDAY EVA Administration Atorvastatin Calcium 40 mg 11/13/20 22:00 11/13/20 22:31 Atorvastatin 40 Mg Tab PO 40 mg QHS EVA Administration Dextrose 50 ml 11/13/20 03:13 Dextrose 50% In Water (25gm) 50 Ml Syringe IV Q30MIN PRN Hypoglycemia Protocol Heparin Sodium (Porcine) 4,400 unit 11/13/20 02:58 Heparin 10,000 Units/10 Ml Vial 40 unit/kg (4400 unit) IV Q6H PRN Anti-Xa Assay<0.1 units/ml Hydromorphone HCl 0.5 mg 11/13/20 02:58 Hydromorphone 1 Mg/1 Ml Inj IV Q3H PRN Pain , Severe (7-10) Heparin Sodium/Sodium Chloride 25,000 unit in 500 mls @ 20 mls/hr 11/12/20 23:45 11/13/20 09:50 Heparin/ 0.45% Nacl-25,000 Unit/500 Ml IV 780.5 units/hr TITRATE EVA 15.61 mls/hr Titration Protocol 1,000 UNITS/HR Sodium Chloride 1,000 mls @ 100 mls/hr 11/13/20 03:00 11/14/20 07:31 Nacl 0.9% 1000 Ml IV 100 mls/hr DIRECT EVA Administration Insulin Human Lispro 0 unit 11/14/20 07:30 11/14/20 09:57 Insulin Lispro 100 Unit/Ml SUB-Q Not Given ACHS [facility] Protocol Isosorbide Mononitrate 60 mg 11/14/20 11:00 Isosorbide Mononitrate Er 60 Mg Tab PO QDAY EVA Morphine Sulfate 2 mg 11/13/20 02:58 Morphine 2 Mg/1 Ml Inj IV Q4H PRN Pain, Moderate (4-6) Ticagrelor 90 mg 11/13/20 22:00 11/14/20 09:59 Ticagrelor 90 Mg Tab PO 90 mg BID EVA Administration Nutrition/Malnutrition Assess - Dietary Evaluation Nutrition/Malnutrition Findings: Nutrition Notes Start: 11/13/20 11:10 Freq: Status: Active Protocol: Document 11/13/20 11:10 GB (Rec: 11/13/20 11:25 EMILEE [email or web address]) Nutrition Notes Need for Assessment generated from: MD Order,Education Initial or Follow up Assessment Other Pertinent Diagnosis chest pain, [place] Current Diet Cardiac Labs/Tests 11/12: glucose 116, BUN 22, creatinine 1.3, Ca 10.3, AlkP 700 Pertinent Medications heparin Na/NaCl Height 5 ft 3 in Weight 109.769 kg [place] Body Weight (kg) 52.27 BMI 42.8 Weight change and time frame No changes reported upond admission Weight Status Morbidly Obese Subjective/Other Information Recent Nstemi 11/13, moving to floor Consult for DM education: pt with history of admits, recommend low sodium education in r/t [place] Diet just started at breakfast for cardiac Percent of energy/protein needs met: unknown at this time, diet just ordered today PO intake of meals at 50% or greater will meet 100% EEN Burn Absent Trauma Absent GI Symptoms None Food Allergy No Skin Integrity/Comment no complications reported Current % PO Other Minimum of two criteria No #1 Nutrition Diagnosis Food and nutrition-related knowledge deficit Etiology consult for DM education per MD As Evidenced by Signs and Symptoms Recommend Low Na nutrition therapy education r/t [place] once pt is on floor and awake. Is patient on ventilator? No Is Patient Ambulatory and/or Out of Bed Yes REE-([facility]-ambulatory/OOB) [ 2140.866 NUTR.MSJOOB] Kcal/Kg value to use for calculation 15 Approximate Energy Requirements Using 1647 kcal/Kg Calculation Used for Recommendations Kcal/kg Additional Notes Protein: 0.6-0.8 g/kg @ 110k-88g Fluids: 1 ml/kcal or per MD Nutrition Intervention Change Diet Order: continue Nutrition Support: n/a Add Supplement/Snack (indicate name/kcal n/a /protein ) Goal #1 PO intake of meals to be 50% or greater daily for LOS Follow-Up By: 11/17/20 Additional Comments f/u: provide Low Sodium nutrition therapy education, po intake - Attestation Statement I have reviewed and agreed w/ Malnutrition eval & tx plan: Yes
[2020-11-15 06:03] LABS: Basophils # (Auto) 0.1 K/mm3 (0.0-0.1); Basophils % (Auto) 0.7 % (0.0-1.8); Eosinophils # (Auto) 0.4 K/mm3 (0.0-0.4); Eosinophils % (Auto) 4.1 % (0.0-4.3); Hematocrit 30.4 % (30.3-42.9); Hemoglobin 10.7 gm/dl (10.1-14.3); Lymphocytes # (Auto) 1.5 K/mm3 (1.2-5.4); Lymphocytes % (Auto) 17.2 % (13.4-35.0); Mean Corpuscular HGB Conc 35 % (30-34); Mean Corpuscular Volume 85 fl (79-97); Monocytes # (Auto) 0.9 K/mm3 (0.0-0.8); Monocytes % (Auto) 10.4 % (0.0-7.3); Platelet Count 261 K/mm3 (140-440); Red Blood Count 3.55 M/mm3 (3.65-5.03); Red Cell Distribution Width 13.8 % (13.2-15.2)
[2020-11-15 06:20] LABS: Calcium 8.8 mg/dL (8.4-10.2)
[2020-11-15] MEDS: SODIUM CHLORIDE 0.9% 1000 ML 1,000 ML IV SCH (06:22)
[2020-11-15] MEDS: INSULIN LISPRO 100 UNIT/ML SUB-Q SCH ×4 (08:39→23:41)
[2020-11-15] MEDS ORDERED: POTASSIUM CHLORIDE ER 20 MEQ TAB PO ONE (09:00)
[2020-11-15] MEDS ORDERED: POTASSIUM CHLORIDE ER 20 MEQ TAB PO SCH ×2 (09:02→14:00)
[2020-11-15] MEDS: amLODIPine 5 MG TAB PO SCH (09:50)
[2020-11-15] MEDS: ASPIRIN 81 MG TAB CHEW PO SCH (09:50)
[2020-11-15] MEDS: SODIUM CHLORIDE 0.45% 500 ML IV SCH ×3 (09:51→21:43)
[2020-11-15] MEDS: TICAGRELOR 90 MG TAB PO SCH ×2 (09:51→21:38)
--- NOTE | 2020-11-15 15:43 | Progress Note ---
Assessment and Plan Assessment and plan: 60-year-old female with a past medical history of diabetes, hypertension and gout presents to the ER today with complaints of upper back pain as well as diffuse anterior chest pain, shortness of breath, nausea vomiting and left-sided abdominal pain. #NSTEMI #Stented coronary artery #Coronary artery disease - Cardiology on board; sharita roque -underwent left heart catheterization (11/13/2020) and was found to have 100% occlusion in the mid RCA. The patient received 2 stents, and currently has normal LV function. - discontinued metoprolol and started isosorbide mononitrate 60 mg daily. -Continue ASA 81 mg daily, atorvastatin 40 mg daily, and Brilinta 90 mg every 12 hours -Continue to monitor #Contrast-induced LEEANN -Likely secondary to recent administration of contrast during left heart catheterization -Creatinine 1.6 -Encouraged increased p.o. intake and starting gentle hydration #Sinus pause -Patient noted to have sinus pause of approximately 4.6 seconds at 2 AM this morning -Continue to monitor #Obstructive sleep apnea -Patient endorses CAMERON; however, the patient could not afford a CPAP. Therefore she does not use one at home. -Initiating continuous pulse oximetry -Continue to monitor #Hypertension -Blood pressure is currently stable -Continue amlodipine 5 mg daily #Diabetes mellitus (type II) -Continue patient on moderate SSI with Accu-Cheks before meals and at bedtime #Acute hypoxic respiratory failure-resolved -Continue to monitor #Nausea and vomiting-resolved -Continue IV Zofran 4 mg every 6 hours as needed #DVT prophylaxis -Continue SCDs Disposition Plan: Pending discharge tomorrow Total Time Spent with Patient (Minutes): 40 History Interval history: No acute events over night. The patient denies fevers, chills, nausea, vomiting, abdominal pain, chest pain/pressure, shortness of breath, urinary symptoms, weakness, or confusion. Hospitalist Physical - Constitutional Vitals: Temp Pulse Resp BP Pulse Ox 98.3 F 75 20 137/68 98 11/15/20 07:55 11/15/20 14:00 11/15/20 11:35 11/15/20 07:55 11/15/20 11:35 General appearance: Present: no acute distress, well-nourished, obese - EENT Eyes: Present: PERRL, EOM intact ENT: hearing intact, clear oral mucosa, dentition normal - Neck Neck: Present: supple, normal ROM - Respiratory Respiratory effort: normal - Cardiovascular Rhythm: regular Heart Sounds: Present: S1 & S2 - Extremities Extremities: no ischemia, pulses intact, pulses symmetrical, No edema, normal temperature, normal color Peripheral Pulses: within normal limits - Abdominal General gastrointestinal: soft, non-tender, non-distended, normal bowel sounds - Integumentary Integumentary: Present: clear, warm, dry - Psychiatric Psychiatric: appropriate mood/affect, intact judgment & insight, memory intact, cooperative - Neurologic Neurologic: CNII-XII intact, moves all extremities - Allied Health Allied health notes reviewed: nursing HEART Score - HEART Score EKG: Non-specific Age: 45-65 Risk factors: 1-2 risk factors Troponin: Troponin T 0.865 ng/mL (0.00-0.029) H* D 11/14/20 05:27 Troponin: > 3x normal limit Results - Labs CBC & Chem 7: 11/15/20 05:21 11/15/20 05:21 Labs: Laboratory Last Values WBC 8.9 K/mm3 (4.5-11.0) 11/15/20 05:21 RBC 3.55 M/mm3 (3.65-5.03) L 11/15/20 05:21 Hgb 10.7 gm/dl (10.1-14.3) 11/15/20 05:21 Hct 30.4 % (30.3-42.9) 11/15/20 05:21 MCV 85 fl (79-97) 11/15/20 05:21 MCH 30 pg (28-32) 11/15/20 05:21 MCHC 35 % (30-34) H 11/15/20 05:21 RDW 13.8 % (13.2-15.2) 11/15/20 05:21 Plt Count 261 K/mm3 (140-440) 11/15/20 05:21 Lymph % (Auto) 17.2 % (13.4-35.0) 11/15/20 05:21 [place] % (Auto) 10.4 % (0.0-7.3) H 11/15/20 05:21 Eos % (Auto) 4.1 % (0.0-4.3) 11/15/20 05:21 Baso % (Auto) 0.7 % (0.0-1.8) 11/15/20 05:21 Lymph # (Auto) 1.5 K/mm3 (1.2-5.4) 11/15/20 05:21 [place] # (Auto) 0.9 K/mm3 (0.0-0.8) H 11/15/20 05:21 Eos # (Auto) 0.4 K/mm3 (0.0-0.4) 11/15/20 05:21 Baso # (Auto) 0.1 K/mm3 (0.0-0.1) 11/15/20 05:21 Seg Neutrophils % 67.6 % (40.0-70.0) 11/15/20 05:21 Seg Neutrophils # 6.0 K/mm3 (1.8-7.7) 11/15/20 05:21 PT 12.4 Sec. (12.2-14.9) 11/12/20 23:40 INR 0.88 (0.87-1.13) 11/12/20 23:40 APTT 31.0 Sec. (24.2-36.6) 11/12/20 23:40 Heparin Anti-Xa Level 0.89 U.I./ml (0.3-0.7) H 11/13/20 07:46 Sodium 139 mmol/L (137-145) 11/15/20 05:21 Potassium 3.3 mmol/L (3.6-5.0) L 11/15/20 05:21 Chloride 105.4 mmol/L (98-107) 11/15/20 05:21 Carbon Dioxide 19 mmol/L (22-30) L 11/15/20 05:21 Anion Gap 18 mmol/L 11/15/20 05:21 BUN 23 mg/dL (7-17) H 11/15/20 05:21 Creatinine 1.6 mg/dL (0.6-1.2) H 11/15/20 05:21 Estimated GFR 40 ml/min 11/15/20 05:21 BUN/Creatinine Ratio 14 % 11/15/20 05:21 Glucose 153 mg/dL (65-100) H 11/15/20 05:21 POC Glucose 161 mg/dL (70-105) H 11/15/20 12:01 Calcium 8.8 mg/dL (8.4-10.2) 11/15/20 05:21 Phosphorus 3.70 mg/dL (2.5-4.5) D 11/15/20 05:21 Magnesium 2.00 mg/dL (1.7-2.3) 11/15/20 05:21 Total Bilirubin 0.70 mg/dL (0.1-1.2) 11/14/20 08:06 Direct Bilirubin 0.4 mg/dL (0-0.2) H 11/14/20 08:06 Indirect Bilirubin 0.3 mg/dL 11/14/20 08:06 AST 40 units/L (5-40) 11/14/20 08:06 ALT 27 units/L (7-56) 11/14/20 08:06 Alkaline Phosphatase 568 units/L (35-129) H 11/14/20 08:06 Troponin T 0.865 ng/mL (0.00-0.029) H* D 11/14/20 05:27 Total Protein 7.5 g/dL (6.3-8.2) 11/14/20 08:06 Albumin 3.7 g/dL (3.9-5) L 11/14/20 08:06 Albumin/Globulin Ratio 1.0 % 11/14/20 08:06 Triglycerides 146 mg/dL (2-149) 11/12/20 21:19 Cholesterol 190 mg/dL (50-199) 11/12/20 21:19 LDL Cholesterol Direct 104 mg/dL (50-130) 11/12/20 21:19 HDL Cholesterol 53 mg/dL (40-59) 11/12/20 21:19 Cholesterol/HDL Ratio 3.58 % 11/12/20 21:19 Lipase 21 units/L (13-60) 11/12/20 21:19 [place]an/IV: Voiding Method Toilet Active Medications - Current Medications Current Medications: Generic Name Dose Route Start Last Admin Trade Name Freq PRN Reason Stop Dose Admin Acetaminophen 650 mg 11/13/20 02:58 11/13/20 22:36 Acetaminophen 325 Mg Tab PO 650 mg Q4H PRN Administration Pain, Mild (1-3) Hydrocodone Bitart/Acetaminophen 1 each 11/13/20 11:51 11/15/20 09:57 Hydrocodone/Acetaminophen 5-325 Mg Tab PO 1 each Q6H PRN Administration Pain, Moderate (4-6) Albuterol 2.5 mg 11/13/20 03:11 11/14/20 21:58 Albuterol 2.5 Mg/3 Ml Nebu IH 2.5 mg Q4HRT PRN Administration Shortness Of Breath Amlodipine Besylate 5 mg 11/13/20 10:00 11/15/20 09:50 Amlodipine 5 Mg Tab PO 5 mg DAILY EVA Administration Aspirin 81 mg 11/14/20 10:00 11/15/20 09:50 Aspirin 81 Mg Tab Chew PO 81 mg QDAY EVA Administration Atorvastatin Calcium 40 mg 11/13/20 22:00 11/14/20 21:42 Atorvastatin 40 Mg Tab PO 40 mg QHS EVA Administration Dextrose 50 ml 11/13/20 03:13 Dextrose 50% In Water (25gm) 50 Ml Syringe IV Q30MIN PRN Hypoglycemia Protocol Hydromorphone HCl 0.5 mg 11/13/20 02:58 Hydromorphone 1 Mg/1 Ml Inj IV Q3H PRN Pain , Severe (7-10) Sodium Chloride 1,000 mls @ 100 mls/hr 11/13/20 03:00 11/15/20 06:22 Nacl 0.9% 1000 Ml IV 100 mls/hr DIRECT EVA Administration Sodium Chloride 500 mls @ 100 mls/hr 11/15/20 10:00 11/15/20 09:51 Nacl 0.45% IV 100 mls/hr DIRECT EVA Administration Insulin Human Lispro 0 unit 11/14/20 07:30 11/15/20 13:12 Insulin Lispro 100 Unit/Ml SUB-Q 2 unit ACHS EVA Administration Protocol Isosorbide Mononitrate 60 mg 11/14/20 11:00 11/15/20 09:51 Isosorbide Mononitrate Er 60 Mg Tab PO 60 mg QDAY EVA Administration Morphine Sulfate 2 mg 11/13/20 02:58 Morphine 2 Mg/1 Ml Inj IV Q4H PRN Pain, Moderate (4-6) Ticagrelor 90 mg 11/13/20 22:00 11/15/20 09:51 Ticagrelor 90 Mg Tab PO 90 mg BID EVA Administration Nutrition/Malnutrition Assess - Dietary Evaluation Nutrition/Malnutrition Findings: Nutrition Notes Start: 11/13/20 11:10 Freq: Status: Active Protocol: Document 10/08/21 11:10 GB (Rec: 11/13/20 11:25 GB [id number]) Nutrition Notes Need for Assessment generated from: MD Order,Education Initial or Follow up Assessment Other Pertinent Diagnosis chest pain, [place] Current Diet Cardiac Labs/Tests 11/12: glucose 116, BUN 22, creatinine 1.3, Ca 10.3, AlkP 700 Pertinent Medications heparin Na/NaCl Height 5 ft 3 in Weight 109.769 kg [place] Body Weight (kg) 52.27 BMI 42.8 Weight change and time frame No changes reported upond admission Weight Status Morbidly Obese Subjective/Other Information Recent Nstemi 11/13, moving to floor Consult for DM education: pt with history of admits, recommend low sodium education in r/t [place] Diet just started at breakfast for cardiac Percent of energy/protein needs met: unknown at this time, diet just ordered today PO intake of meals at 50% or greater will meet 100% EEN Burn Absent Trauma Absent GI Symptoms None Food Allergy No Skin Integrity/Comment no complications reported Current % PO Other Minimum of two criteria No #1 Nutrition Diagnosis Food and nutrition-related knowledge deficit Etiology consult for DM education per MD As Evidenced by Signs and Symptoms Recommend Low Na nutrition therapy education r/t [place] once pt is on floor and awake. Is patient on ventilator? No Is Patient Ambulatory and/or Out of Bed Yes REE-([facility]-ambulatory/OOB) [ 2140.866 NUTR.MSJOOB] Kcal/Kg value to use for calculation 15 Approximate Energy Requirements Using 1647 kcal/Kg Calculation Used for Recommendations Kcal/kg Additional Notes Protein: 0.6-0.8 g/kg @ 110k-88g Fluids: 1 ml/kcal or per MD Nutrition Intervention Change Diet Order: continue Nutrition Support: n/a Add Supplement/Snack (indicate name/kcal n/a /protein ) Goal #1 PO intake of meals to be 50% or greater daily for LOS Follow-Up By: 11/17/20 Additional Comments f/u: provide Low Sodium nutrition therapy education, po intake
[2020-11-15 15:50] LABS: Calcium 8.9 mg/dL (8.4-10.2)
--- NOTE | 2020-11-15 17:48 | Progress Note ---
Assessment and Plan initiate IV fluids. Obtain BMP in a.m. Once renal indices have adequately improved, she may be discharged from a cardiac standpoint. - Patient Problems (1) NSTEMI (non-ST elevated myocardial infarction) Current Visit: Yes Status: Acute (2) Stented coronary artery Current Visit: Yes Status: Acute (3) CAD (coronary artery disease) Current Visit: Yes Status: Acute Qualifiers: Coronary Disease-Associated Artery/Lesion type: [place] artery (4) Sinus pause Current Visit: Yes Status: Acute (5) LEEANN (acute kidney injury) Current Visit: Yes Status: Acute (6) CAMERON (obstructive sleep apnea) Current Visit: Yes Status: Chronic (7) Abnormal LFTs Current Visit: Yes Status: Acute (8) Hypertension Current Visit: Yes Status: Chronic Qualifiers: Hypertension type: primary hypertension Qualified Code(s): I10 - Essential (primary) hypertension (9) Diabetes mellitus Current Visit: Yes Status: Chronic Qualifiers: Diabetes mellitus type: type 2 Subjective Date of service: 11/15/20 Principal diagnosis: Acute NSTEMI Interval history: She feels fine with no complaint. However, her renal indices are worsening. Objective Vital Signs Temp Pulse Pulse Resp Resp BP Pulse Ox 11/15/20 16:26 99.0 F 72 18 153/83 99 11/15/20 14:00 75 11/15/20 11:35 20 98 11/15/20 07:55 98.3 F 75 20 137/68 98 11/15/20 06:00 76 11/15/20 04:31 98.5 F 76 18 143/82 94 11/15/20 02:02 98 11/14/20 23:26 98.3 F 77 18 112/55 95 11/14/20 22:01 75 18 11/14/20 20:05 98.4 F 80 18 109/66 94 - Physical Examination General: No Apparent Distress HEENT: Positive: EOMI, Normocephaly, Mucus Membranes Moist Neck: Positive: neck supple, trachea midline, Carotid Upstroke (full) Cardiac: Positive: Reg Rate and Rhythm, S1/S2 Lungs: Positive: clear to auscultation Neuro: Positive: Grossly Intact Abdomen: Positive: Soft, Active Bowel Sounds. Negative: Tender Skin: Positive: Clear. Negative: Rash Incision: Cardiac Cath Site (No hematoma) Musculoskeletal: Normal Range of Motion Extremities: Present: normal. Absent: edema - Labs and Meds CBC 11/15/20 Range/Units 05:21 WBC 8.9 (4.5-11.0) K/mm3 RBC 3.55 L (3.65-5.03) M/mm3 Hgb 10.7 (10.1-14.3) gm/dl Hct 30.4 (30.3-42.9) % Plt Count 261 (140-440) K/mm3 Lymph # (Auto) 1.5 (1.2-5.4) K/mm3 [place] # (Auto) 0.9 H (0.0-0.8) K/mm3 Eos # (Auto) 0.4 (0.0-0.4) K/mm3 Baso # (Auto) 0.1 (0.0-0.1) K/mm3 Comprehensive Metabolic Panel 11/15/20 11/15/20 Range/Units 05:21 14:57 Sodium 139 139 (137-145) mmol/L Potassium 3.3 L 4.1 D (3.6-5.0) mmol/L Chloride 105.4 106.5 (98-107) mmol/L Carbon Dioxide 19 L 19 L (22-30) mmol/L BUN 23 H 23 H (7-17) mg/dL Creatinine 1.6 H 1.7 H (0.6-1.2) mg/dL Glucose 153 H 164 H (65-100) mg/dL Calcium 8.8 8.9 (8.4-10.2) mg/dL - Telemetry EKG Rhythm: Sinus Rhythm
[2020-11-16] MEDS: SODIUM CHLORIDE 0.45% 500 ML IV SCH (05:42)
[2020-11-16 06:14] LABS: Hematocrit 31.3 % (30.3-42.9)
[2020-11-16] MEDS ORDERED: LACTATED RINGERS 1,000 ML IV ONE (07:45)
[2020-11-16] MEDS: INSULIN LISPRO 100 UNIT/ML SUB-Q SCH ×2 (08:13→12:58)
[2020-11-16 09:19] VITALS: BP 156/82
--- NOTE | 2020-11-16 10:26 | Progress Note ---
Assessment and Plan Patient is stable and may be discharged from a cardiac standpoint. Upon discharge patient should continue current medication regimen Patient should follow up with Dr. Ryan Thornton, [facility], on 11/20/2020 at 10am at our [place] location. . Patient seen in conjunction with Dr. Hurtado who agrees with this plan of care. Will sign off - Patient Problems (1) LEEANN (acute kidney injury) Current Visit: Yes Status: Acute (2) Abnormal LFTs Current Visit: Yes Status: Acute (3) CAD (coronary artery disease) Current Visit: Yes Status: Acute Qualifiers: Coronary Disease-Associated Artery/Lesion type: [place] artery (4) NSTEMI (non-ST elevated myocardial infarction) Current Visit: Yes Status: Acute (5) Stented coronary artery Current Visit: Yes Status: Acute (6) Diabetes mellitus Current Visit: Yes Status: Chronic Qualifiers: Diabetes mellitus type: type 2 (7) Hypertension Current Visit: Yes Status: Chronic Qualifiers: Hypertension type: primary hypertension Qualified Code(s): I10 - Essential (primary) hypertension (8) Shortness of breath Current Visit: No Status: Acute Subjective Date of service: 11/16/20 Principal diagnosis: Acute NSTEMI Interval history: Patient sitting in bed and reports feeling well Sinus 72 on monitor Objective Vital Signs Temp Pulse Resp BP Pulse Ox 11/16/20 07:49 98.1 F 77 18 156/82 92 11/16/20 05:46 98.3 F 75 16 165/78 92 11/16/20 00:09 98.6 F 73 20 145/67 91 11/15/20 20:21 18 98 11/15/20 19:59 98.3 F 80 20 133/71 96 11/15/20 16:26 99.0 F 72 18 153/83 99 11/15/20 14:00 75 11/15/20 11:35 20 98 - Physical Examination General: No Apparent Distress HEENT: Positive: EOMI, Normocephaly, Mucus Membranes Moist Neck: Positive: neck supple, trachea midline, Carotid Upstroke (full) Cardiac: Positive: Reg Rate and Rhythm Lungs: Positive: Normal Exam Neuro: Positive: Grossly Intact Abdomen: Positive: Soft, Active Bowel Sounds. Negative: Tender Skin: Positive: Clear. Negative: Rash Incision: Cardiac Cath Site (No hematoma) Musculoskeletal: Normal Range of Motion Extremities: Present: normal. Absent: edema - Labs and Meds CBC 11/16/20 Range/Units 05:07 Hgb 11.0 (10.1-14.3) gm/dl Hct 31.3 (30.3-42.9) % Plt Count 278 (140-440) K/mm3 Comprehensive Metabolic Panel 11/15/20 11/16/20 Range/Units 14:57 05:07 Sodium 139 139 (137-145) mmol/L Potassium 4.1 D 4.0 (3.6-5.0) mmol/L Chloride 106.5 106.2 (98-107) mmol/L Carbon Dioxide 19 L 16 L (22-30) mmol/L BUN 23 H 20 H (7-17) mg/dL Creatinine 1.7 H 1.5 H (0.6-1.2) mg/dL Glucose 164 H 119 H (65-100) mg/dL Calcium 8.9 9.0 (8.4-10.2) mg/dL - Imaging and Cardiology EKG: report reviewed Echo: report reviewed - Telemetry EKG Rhythm: Sinus Rhythm - EKG Sinus rhythms and dysrhythmias: sinus rhythm
[2020-11-16] MEDS: amLODIPine 5 MG TAB PO SCH (10:45)
[2020-11-16] MEDS: TICAGRELOR 90 MG TAB PO SCH (10:45)
[2020-11-16] MEDS: ASPIRIN 81 MG TAB CHEW PO SCH (10:45)
--- NOTE | 2020-11-16 10:49 | Electrocardiograph Report ---
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
[2020-11-16] MEDS: ACETAMINOPHEN 325 MG TAB PO PRN (10:50)
--- NOTE | 2020-11-16 10:54 | Electrocardiograph Report ---
[facility] Test Date: 2020-11-14 Test Time: 07:21:48 Pat Name: KARI STEELE Department: Room: A477 1 Gender: F Hospitality Internship: CHASIDY : 1960 Requested By: MANPREET CRUZ Order Number: [id number] Reading MD: Anthony Hurtado Measurements Intervals [place] Rate: 71 P: 36 [place]: 174 QRS: 15 QRSD: 87 T: -56 QT: 428 QTc: 465 Interpretive Statements Sinus rhythm non specific st-t LVH BY VOLTAGE Compared to ECG 11/13/2020 12:41:02 T-wave abnormality no longer present Electronically Signed On 11-16-2020 10:53:50 EDT by Anthony Hurtado
--- NOTE | 2020-11-16 10:57 | Electrocardiograph Report ---
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
--- NOTE | 2020-11-16 14:49 | Discharge Summary ---
Providers - Providers Date of Admission: 11/13/20 02:00 Date of discharge: 11/16/20 Attending physician: GORDON CARPIO MD 11/13/20 Consult to Cardiac Rehabilitation [CONS] Routine Reason For Exam: Phase 1 Consult to Cardiac Rehabilitation [CONS] Routine Reason For Exam: post pci 11/13/20 02:58 Consult to Cardiology [CONS] Routine Consulting Provider: PAUL ALVA Reason For Exam: Non-ST elevation [place] 11/13/20 03:13 Consult to Dietitian/Nutrition [CONS] Routine Physician Instructions: Reason For Exam: Reason for Consult: Diet education Primary care physician: TORO HANDLEY Hospitalization Reason for admission: Acute coronary syndrome Condition: Stable Pertinent studies: Reviewed Procedures: Left heart catheterization; stent placed in mid RCA Hospital course: 60-year-old female with a past medical history of diabetes, hypertension, and gout presents to the ER today with complaints of upper back pain as well as diffuse anterior chest pain, shortness of breath, nausea vomiting and left-sided abdominal pain. The patient was evaluated by cardiology and underwent left heart catheterization (11/13/2020 and was found to have 100% occlusion in the mid RCA. Patient received 2 stents, and had no complications with the procedure. The patient's antihypertensive regimen was adjusted, and the patient was initiated on ASA 81 mg daily, atorvastatin 40 mg daily, and Brilinta 90 mg every 12 hours. Due to financial limitations, Brilinta was transition to Plavix 75 mg daily. The patient received extensive counseling on the importance of medication compliance, especially in the setting of a newly placed stent. Danielle nt expressed understanding. Patient will follow up with cardiology in outpatient setting in approximately 7 days per their recommendations. Patient was discharged safely home. Disposition: 01 HOME / SELF CARE / HOMELESS Final Discharge Diagnosis (Prints w/discharge instructions): NSTEMI; CAD; stented coronary artery Time spent for discharge: 40 Core Measure Documentation - Palliative Care Palliative Care/ Comfort Measures: Not Applicable - Core Measures Any of the following diagnoses?: acute [place] - VTE Discharge Requirements Deep Vein Thrombosis/Pulmonary Embolism Present on Admission: No Has pt received <5 days of overlap therapy or INR<2.0: No Anticoagulant overlap therapy prescribed at discharge: No (Not indicated) Contraindication No Overlap Therapy order at DC: Not Indicated - Acute [place] Discharge Requirements Aspirin at discharge: Yes ROSA/ARB for LVSD if EF <40%: Not Applicable Reason for no ROSA/ARB: Renal impairment Beta leta at discharge: Yes Statin for LDL = or >100 mg/dl on DC: Yes - Heart Failure Discharge Requirements ROSA/ARB for LVSD if EF <40%: Not Applicable Reason for no ROSA/ARB: Renal impairment Beta leta at discharge: Yes - Stroke Discharge Requirements Statin for LDL = or >70 mg/dl on DC: Yes Reason for no statin on DC: Not Indicated Anticoag for atrial fib/atrial flutter: Not Applicable Reason for no anticoag for AF/F on DC: Not Indicated Antithrombotic for ischemic stroke: No Reason for no antithrombotic on DC: Not Indicated Exam - Constitutional Vitals: Temp Pulse Resp BP Pulse Ox 98.1 F 77 20 156/82 99 11/16/20 07:49 11/16/20 07:49 11/16/20 08:00 11/16/20 07:49 11/16/20 08:00 General appearance: Present: no acute distress, well-nourished, obese - EENT Eyes: Present: PERRL, EOM intact ENT: hearing intact, clear oral mucosa, dentition normal - Neck Neck: Present: supple, normal ROM - Respiratory Respiratory effort: normal - Cardiovascular Rhythm: regular Heart Sounds: Present: S1 & S2 - Extremities Extremities: no ischemia, pulses intact, pulses symmetrical, No edema, normal temperature, normal color Peripheral Pulses: within normal limits - Abdominal General gastrointestinal: Present: soft, non-tender, non-distended, normal bowel sounds Female genitourinary: Present: deferred - Rectal Rectal Exam: deferred - Integumentary Integumentary: Present: clear, warm, dry - Musculoskeletal Musculoskeletal: strength equal bilaterally - Psychiatric Psychiatric: appropriate mood/affect, intact judgment & insight, memory intact, cooperative - Neurologic Neurologic: CNII-XII intact, moves all extremities - Allied Health Allied health notes reviewed: nursing Plan Health Concerns: Patient should return to the emergency room if they experience any of the following: Confusion, chest pain/pressure, shortness of breath, worsening a bdominal pain, inability to tolerate oral intake, inability to produce urine, or weakness. Assessment: Patient discharging home. Follow up with: PAUL ALVA MD [Staff Physician] - 7 Days TORO HANDLEY MD [Primary Care Provider] - 7 Days Prescriptions: AtorvaSTATin [Lipitor] 40 mg PO QHS #30 tablet amLODIPine 5 mg PO DAILY #30 tablet Aspirin [Aspirin BABY CHEW TAB] 81 mg PO QDAY #30 tab.chew ISOSORBIDE MONOnitrate [Imdur ER] 60 mg PO QDAY #30 tablet Clopidogrel [Plavix] 75 mg PO QDAY #30 tablet
== END 2020-11-16 17:44 | disposition home or self-care (01) | DRG 246 ==
LOC: ED 18:58 → IMCU 11-13 02:00 → 4A 11-13 03:17
PROVIDERS: ADMIT Hospitalist; ATTEND Student in an Organized Health Care Education/Training Program
PROC: 027035Z Dilation of Coronary Artery, One Artery with Two Drug-eluting Intraluminal Devices, Percutaneous Approach (ICD-10-PCS; principal; 2020-11-13)
PROC: 4A023N7 Measurement of Cardiac Sampling and Pressure, Left Heart, Percutaneous Approach (ICD-10-PCS; 2020-11-13)
PROC: B2111ZZ Fluoroscopy of Multiple Coronary Arteries using Low Osmolar Contrast (ICD-10-PCS; 2020-11-13)
PROC: B2151ZZ Fluoroscopy of Left Heart using Low Osmolar Contrast (ICD-10-PCS; 2020-11-13)
PROC: B240ZZ3 Ultrasonography of Single Coronary Artery, Intravascular (ICD-10-PCS; 2020-11-13)
DX: I21.4 Non-ST elevation (NSTEMI) myocardial infarction (principal); J96.01 Acute respiratory failure with hypoxia; N17.9 Acute kidney failure, unspecified; Z68.41 Body mass index [BMI] 40.0-44.9, adult; N14.4 Toxic nephropathy, not elsewhere classified; I25.10 Atherosclerotic heart disease of native coronary artery without angina pectoris; M10.9 Gout, unspecified; E66.9 Obesity, unspecified; I12.9 Hypertensive chronic kidney disease with stage 1 through stage 4 chronic kidney disease, or unspecified chronic kidney disease; E11.22 Type 2 diabetes mellitus with diabetic chronic kidney disease; N18.9 Chronic kidney disease, unspecified; M19.90 Unspecified osteoarthritis, unspecified site; G47.33 Obstructive sleep apnea (adult) (pediatric); Z88.8 Allergy status to other drugs, medicaments and biological substances; Z79.899 Other long term (current) drug therapy
CPT/HCPCS: 36415; 71045; 71046; 80048; 80053; 80061; 80076; 82962; 83690; 83735; 84100; 84484; 85014; 85018; 85025; 85049; 85520; 85610; 85730; 92928; 92978; 93005; 93306; 93458; 94640; G0378; C1725; C1753; C1769; C1874; C1887; C1894; C9600; J1644; J1815; J2250; J3010; J3475; J7030; J7040; Q9967